=== PATIENT | female | born 1975 | race Caucasian/White ===

== ENCOUNTER 2020-06-16 05:55 | Day surgery (SDC) | payer BC ==
[~2020-06-16] VITALS: Ht 165.1 cm; Wt 64.5 kg
[~2020-06-16 05:55] MED LIST: FERROUS SULFAT325 MG PO; IBU800 MG PO; K-TAB ER20 MEQ; METOPROLOL TAR100 MG PO; NORCO 5-325 TA1 EACH PO; TRIAMTERENE-HC1 EAC2 PO
--- NOTE | 2020-06-16 10:26 | NUR ---
06/16/20 Rick6 Christianne Diaz 1019 PT TO PACU ORAL AIR WAY IN PLACE STILL NEEDS CHIN THRUST TO MAINTAIN AIRWAY. PT SLEEPING
[2020-06-16] MEDS ORDERED: MOTRIN IB200 MG PO (11:18)
[2020-06-16] MEDS ORDERED: PERCOCET 5-3251 EACH PO (11:18)
[2020-06-16] MEDS ORDERED: ZOFRAN4 MG PO (11:19)
--- NOTE | 2020-06-16 12:13 | NUR ---
MORE ICED WATER GIVEN. CALL LIGHT WITHIN REACH. XIOMARA DONG ON WARM. SPOUSE AT BEDSIDE.
--- NOTE | 2020-06-16 13:32 | NUR ---
LE 1310: PATIENT IS UP TO THE BATHROOM WITH MY ASSIST. SHE VOIDS 150 ML OF ORANGE URINE AND AMBULATES BACK TO HER ROOM. DISCHARGE INSTRUCTIONS ARE GIVEN AND SHE AND HER SPOUSE BOTH VERBALIZE UNDERSTANDING. PATIENT IS GETTING DRESSED IN THE PRESENCE OF HER SPOUSE. SHE TRANSFERS HERSELF TO THE WHEELCHAIR AND THEN TO HER PERSONAL VEHICLE AND SHE TOLERATES THAT WELL.
--- NOTE | 2020-06-16 14:55 | EKG ---
[facility] [address] [facility] [place], [place] [address] Signed Normal sinus rhythm Normal ECG No previous ECGs available Confirmed by DEMETRIS CODY DO ([id number]) on 06/16/2020 2:54:49 PM Electronically Signed By: DEMETRIS CODY DO 06/16/20 1455 PATIENT NAME: BEN MARADIAGA Electrocardiogram DATE OF : 77 PHYSICIAN: DEMETRIS CODY DO REPORT #: [id number] REPORT IS CONFIDENTIAL AND NOT TO BE RELEASED WITHOUT AUTHORIZATION
--- NOTE | 2020-06-22 11:11 | PATH ---
[facility] [address] [place], [place] [address] Signed SPECIMEN(S): A CERVIX, UTERUS AND BILATERAL TUBES SPECIMEN SOURCE: A. CERVIX, UTERUS AND BILATERAL TUBES CLINICAL HISTORY: Irregular bleeding, menometrorrhagia. FINAL PATHOLOGIC DIAGNOSIS: Uterus, cervix, and bilateral fallopian tubes, hysterectomy and bilateral salpingectomy: - Cervix: No histopathologic abnormality. - Endometrium: Secretory phase endometrium with foci suggestive of endometrial polyp(s). - Myometrium: Leiomyomata (7.5 cm in greatest dimension). - Fallopian tubes: Two fallopian tubes with paratubal cysts. - No evidence of malignancy. NAL:cml:C2NR MICROSCOPIC EXAMINATION: Histologic sections of all submitted blocks are examined by light microscopy. Some traffic workforce representative sections of the leiomyoma(ta) demonstrate a plexiform growth pattern. Desmin and SMA immunohistochemical stains (with appropriately staining controls) demonstrate diffuse and strong reactivity in these fragments, confirming smooth muscle origin and the diagnosis of leiomyoma. These findings, together with the gross examination, support the pathologic diagnosis. GROSS DESCRIPTION: The specimen, labeled "ASHWINI, A," and designated on the requisition "cervix, uterus, + bilateral tubes," is received in formalin and consists of a previously fragmented into multiple pieces uterine corpus, a detached cervix, and 2 detached fimbriated fallopian tube segments. The uterus with attached cervix weighs 483 g and measures 16.7 x 15.8 x 5.5 cm in aggregate. Due to complete fragmentation of the orientation of the uterus is not grossly determinable. Where identifiable, the uterine serosa is flores, smooth, glistening. The ectocervical tissue is flores-white, smooth, glistening, and occupies a 3.1 x 3.2 cm area. The external os is oval, patent, and 0.7 cm in diameter. The internal os is patent and the cervical stroma is PATIENT NAME: BEN MARADIAGA PATHOLOGY DATE OF : 77 REPORT #: [id number] PHYSICIAN: PREETHI PATHOLOGY PCP: NO PRIMARY CARE PHYSICIAN REPORT IS CONFIDENTIAL AND NOT TO BE RELEASED WITHOUT AUTHORIZATION [facility] [address] [place], [place] [address] Signed grossly unremarkable. A triangle endometrial cavity is not grossly identified fragmentation. Grossly definitive endometrium is not identified. However possible endometrium that is markedly thickened, flores, to 1.2 cm thick and without a definitive mass/lesion is grossly identified. The flores, rubbery myometrium contains multiple previously fragmented, somewhat well-circumscribed, flores-white, rubbery nodules up to 7.5 cm in greatest dimension. The nodules have a whorled, mcnulty-white cut surface. An additional discrete mass/lesion is not grossly identified. The 2 fimbriated fallopian tube segments are purple, undesignated, and have a patent lumen. The first is inked blue, 5.3 cm long, 0.9 cm in diameter, and has multiple clear fluid-filled paratubal cystic structures up to 1.5 cm in greatest dimension. The cystic structures have smooth inner manning. The second tube is 5.3 cm long, 0.8 cm in diameter, and has multiple clear fluid-filled, smooth inner walled paratubal cystic structures from 0.3 up to 1.6 cm in greatest dimension. Ssn/Ssbn Assistant Navigator sections are submitted as follows: A1-A2 cervix A3-A4 possible endometrium A5 nodules and myometrium A6 tubes AI (under the direct supervision of a pathologist) Per request by Dr. Pate, one additional block of myometrial nodules is submitted (A7). AI 06/18/20 9:54 AM The Gross Description was prepared using a voice recognition system. The report was reviewed for accuracy; however, sound-alike word errors, addition and/or deletions may occur. If there is any question about this report, please contact Client Services. PERFORMING LABORATORY: The technical component was performed by [facility] [address] (Energy Scheduler: Farnaz Correa MD; CLIA# [id number]). Professional interpretation was performed by [facility], [address] [address] (CLIA# [id number]). Diagnostician: Myrna Pate MD Pathologist PATIENT NAME: BEN MARADIAGA PATHOLOGY DATE OF : [birth year] REPORT #: [id number] PHYSICIAN: PREETHI PATHOLOGY PCP: NO PRIMARY CARE PHYSICIAN REPORT IS CONFIDENTIAL AND NOT TO BE RELEASED WITHOUT AUTHORIZATION [facility] [address] [place], [place] [address] Signed Electronically Signed 06/22/2020 Copies: ~ PATIENT NAME: BEN MARADIAGA PATHOLOGY DATE OF : [birth year] REPORT #: [id number] PHYSICIAN: PREETHI PATHOLOGY PCP: NO PRIMARY CARE PHYSICIAN REPORT IS CONFIDENTIAL AND NOT TO BE RELEASED WITHOUT AUTHORIZATION
--- NOTE | 2020-06-22 12:33 | OR ---
[facility] [address] [place], [place] [address] Signed DATE OF OPERATION: 06/16/2020 SURGEON: Dyana Nunn MD SHOT MAN: Mulugeta Petty MD PREOPERATIVE DIAGNOSES: 1. Menorrhagia. 2. Uterine fibroids. POSTOPERATIVE DIAGNOSES: 1. Menorrhagia. 2. Uterine fibroids. 3. Pelvic adhesions. PROCEDURE: Laparoscopy with total laparoscopic hysterectomy, bilateral salpingectomy, lysis of adhesions, cystoscopy. ANESTHESIA: General ET. ESTIMATED BLOOD LOSS: 100 mL. DRAINS: Moctezuma catheter. INDICATIONS AND FINDINGS: The patient is a 44-year-old female, 1, para 1, status post 1 prior section in 1996, who has been having abnormal bleeding for quite some time. She had undergone removal of a submucous fibroid a few years ago and had done well for a while, but then had recurrent heavy bleeding. At the time of surgery, exam under anesthesia revealed a uterus, which was approximately 12 to 14-week size, firm. The ovaries were normal. The tubes were also normal. There were dense adhesions at the bladder flap area in the midline. DESCRIPTION OF PROCEDURE: The patient was prepped and draped in the dorsal lithotomy position. A weighted Electronically Signed By: DYANA NUNN MD 06/22/20 1233 PATIENT NAME: BEN MARADIAGA OPERATIVE REPORT DATE OF : 77 REPORT #: [id number] PHYSICIAN: DYANA NUNN MD PCP: NO PRIMARY CARE PHYSICIAN REPORT IS CONFIDENTIAL AND NOT TO BE RELEASED WITHOUT AUTHORIZATION [facility] [address] [place], [place] [address] Signed speculum was placed. The anterior lip of the cervix was visualized and grasped with a single-tooth tenaculum. The cavity was then sounded to 8 cm. The endocervical canal was then dilated and a VCare cannula placed and the balloon inflated at the fundus. The tenaculum and speculum were removed. The cup was fitted over the cervix and a locking cap fitted into place. Attention was then directed above. The infraumbilical area was injected with 0.5% Marcaine plain. Incision was made with a knife, and each layer was serially elevated and incised until the fascia was opened and identified. Stay sutures of 0 Vicryl were then placed. The peritoneum was opened bluntly. The Jenna cannula was then placed and the balloon inflated. Placement of the scope confirmed proper positioning. The abdomen was then insufflated with carbon dioxide gas. When it was appropriately distended, secondary ports were placed. These secondary ports were placed slightly below the level of the umbilicus and laterally. The left-sided port was a 5 mm port and the right was a Verres needle followed by the expanding port. Each of these were placed after injection with the Marcaine. Incision made with a knife and the trocars were placed under direct vision. Following this, attention was directed to the severe adhesions anteriorly. These were lysed using the LigaSure [place] device. These were taken down very close to the uterus to avoid possible bladder injury. The patient's left tube was then identified and serially coagulated and divided along the mesosalpinx. The specimen was removed through the right port. The left round ligament was then serially coagulated and divided as well as the right utero-ovarian pedicle. Following this, the anterior leaf of the peritoneum could be incised allowing for creation of a partial bladder flap. The peritoneum was taken down posteriorly with some difficulty. The attention was then directed to the patient's right side because of the difficulty with manipulation. The patient's right tube was serially coagulated and divided along the mesosalpinx and removed through the right port as well. The patient's right round ligament was serially coagulated and divided followed by the right utero-ovarian pedicle. Following this, the anterior leaf of the peritoneum was taken down allowing for completion of the bladder flap. The peritoneum was taken down posteriorly as well. This allowed for skeletonization of the uterine vessels. These were coagulated multiple times and then divided. Further dissection was then done posteriorly and anteriorly. Attention was redirected to the patient's left side. The posterior peritoneum was taken down further and this allowed for isolation of the uterine vessels. These were coagulated multiple times and then divided. Following this, further dissection was done both posteriorly and anteriorly. This entire procedure was quite difficult because of the bulk of the uterus and the difficulty maneuvering it. The Sonicision device was then used to excise the specimen. It was begun posteriorly and wrapped around anteriorly on the left side and then started again posteriorly and wrapped around on the right side. Following this, the specimen was free of the vaginal cuff. Attention was then directed down below and the cervix was grasped with single-tooth tenaculums. A weighted speculum was placed. Because of the bulk of the uterus, this required significant morselization inside the vaginal canal. The specimen was removed completely. Following this, the vaginal canal was packed with a Electronically Signed By: DYANA NUNN MD 06/22/20 1233 PATIENT NAME: BEN MARADIAGA OPERATIVE REPORT DATE OF : 77 REPORT #: [id number] PHYSICIAN: DYANA NUNN MD PCP: NO PRIMARY CARE PHYSICIAN REPORT IS CONFIDENTIAL AND NOT TO BE RELEASED WITHOUT AUTHORIZATION [facility] [address] [place], [place] [address] Signed glove with a wet lap. This allowed for reaccumulation of the pneumoperitoneum. Attention was directed above. The abdomen was copiously irrigated and inspected. There were some bleeding points at the left portion of the cuff near the angle. This was controlled with the LigaSure device. The vaginal cuff was then closed with the Endo Stitch. This was begun at the patient's right uterosacral ligament, taking care to incorporate both the anterior and posterior vaginal mucosa and run to the patient's left uterosacral ligament and back to the center. Following this, there was quite a raw area. The patient's right ovary had some bleeding near the excision site and this was re-cauterized using the LigaSure device as well. The decision was made to proceed with Tisseel. While waiting for this to defrost, cystoscopy was done. The patient received fluorescein. The Moctezuma catheter was removed and the 30-degree cystoscope placed. There was some bruising at the posterior aspect of the bladder, but both ureteral orifices were visualized and free spill of fluorescein stained urine was seen from each of these. The bladder was then drained and the Moctezuma catheter replaced. The vaginal pack was removed at this time as well. Attention was redirected above and the abdomen was again reinflated and re-irrigated. There appeared to be good hemostasis. The pressure was turned down to be sure that there was good hemostasis and this remained. Following this, Tisseel was sprayed over the vaginal cuff and both pelvic sidewalls to further aid in hemostasis. Following this, the instruments were removed from the abdomen after allowing as much CO2 as possible to escape. The fascial incision at the umbilicus was re-identified and closed with a running suture of 0 Vicryl. The skin incisions were closed with subcuticular sutures of 3-0 Vicryl Rapide. All sponge and needle counts were correct. She tolerated the procedure well and was taken to the recovery room in good condition. Dyana Nunn MD PJW/MODL /[id number] cc: Mulugeta Petty MD Copies: MULUGETA PETTY MD Electronically Signed By: DYANA NUNN MD 06/22/20 1233 PATIENT NAME: BEN MARADIAGA OPERATIVE REPORT DATE OF : 77 REPORT #: [id number] PHYSICIAN: DYANA NUNN MD PCP: NO PRIMARY CARE PHYSICIAN REPORT IS CONFIDENTIAL AND NOT TO BE RELEASED WITHOUT AUTHORIZATION [facility] [address] [place] [id number] Signed ~ Electronically Signed By: DYANA NUNN MD 06/22/20 1233 PATIENT NAME: BEN MARADIAGA OPERATIVE REPORT DATE OF : [birth year] REPORT #: [id number] PHYSICIAN: DYANA NUNN MD PCP: NO PRIMARY CARE PHYSICIAN REPORT IS CONFIDENTIAL AND NOT TO BE RELEASED WITHOUT AUTHORIZATION
== END 2020-06-16 13:20 | disposition home or self-care (01) ==
LOC: DS 05:55
PROVIDERS: ATTEND Obstetrics & Gynecology
PROC: 0UT9FZZ Resection of Uterus, Via Natural or Artificial Opening With Percutaneous Endoscopic Assistance (ICD-10-PCS; principal; 2020-06-16 06:45)
PROC: 0UT7FZZ Resection of Bilateral Fallopian Tubes, Via Natural or Artificial Opening With Percutaneous Endoscopic Assistance (ICD-10-PCS; 2020-06-16 06:45)
DX: D25.1 Intramural leiomyoma of uterus (principal); N83.8 Other noninflammatory disorders of ovary, fallopian tube and broad ligament; N73.6 Female pelvic peritoneal adhesions (postinfective); I10 Essential (primary) hypertension; F32.9 Major depressive disorder, single episode, unspecified
CPT/HCPCS: 00840; 93005; 93010; J0330; J0694; J1100; J1644; J1885; J2001; J2250; J2405; J2704; J2765; J3475; J7121